=== PATIENT | male | born 1975 | race African-American/Black ===

== ENCOUNTER 2016-10-28 18:31 | Emergency (ER) | payer SELFPAY ==
[~2016-10-28] VITALS: Ht 182.9 cm; Wt 97.5 kg
[2016-10-28 18:33] VITALS: BP 128/75; PULSE 105; RESP 18; TEMP 98.4; O2SAT 98
--- NOTE | 2016-10-28 19:01 | PD ---
HPI Chief Complaint: Cold / Flu Symptoms Time Seen by Provider: 19:01 Travel History International Travel<30 days: No Contact w/Intl Traveler<30days: No Traveled to known affect area: No History of Present Illness HPI 41-year-old male with PMH of DM, asthma presents to the ED for evaluation of 2 week history of cough, congestion, clear rhinorrhea, subjective fevers. Patient states symptoms are improving with symptomatic treatment. He however he states that today he began to feel short of breath. Gradual onset. States that his chest feels tight, similar to previous asthma exacerbations. Endorses wheezing. He denies chest pain, palpitations, diaphoresis, nausea, vomiting, abdominal pain. Patient states he is prescribed a rescue inhaler but is "out." PFSH Past Medical History Diabetes: Yes Social History Tobacco Use: No Allergies-Medications (Allergen,Severity, Reaction): Coded Allergies: No Known Allergies (Unverified , 10/28/16) Reported Meds & Prescriptions Reported Meds & Active Scripts Active Azithromycin 250 Mg Tab 250 Mg PO DIRECTED Take 2 tabs (500 mg) on day 1 then 1 tab daily x 4 days. Tessalon Perles (Benzonatate) 100 Mg Cap 100 Mg PO TID PRN Ventolin Hfa 18 GM Inh (Albuterol Sulfate) 90 Mcg/Act Aer 2 Puff INH Q6H PRN Reported Metformin (Metformin HCl) 500 Mg Tab 500 Mg PO BIDPC With meals Gabapentin 300 Mg Cap 300 Mg PO TID Review of Systems Except as stated in HPI: all other systems reviewed are Neg Physical Exam Narrative GENERAL: Well-nourished, well-developed male in no acute distress. SKIN: Warm and dry. HEAD: Normocephalic. Atraumatic. EYES: No scleral icterus. No injection or drainage. PERRLA. EOMI. ENT: Pearly dyer tympanic membranes bilaterally. Nasal mucosa is moist. Oropharynx without erythema, edema or exudate. NECK: Supple, trachea midline. No JVD or lymphadenopathy. CARDIOVASCULAR: Regular rate and rhythm without murmurs, gallops, or rubs. No carotid bruits. 2+ DP and radial pulses bilaterally. RESPIRATORY: Breath sounds equal bilaterally. Very minimal expiratory wheezing in the upper lung lee bilaterally. No accessory muscle use. GASTROINTESTINAL: Abdomen soft, non-tender, nondistended. + Bowel sounds MUSCULOSKELETAL: No cyanosis, or edema. Patient is ambulatory, moves extremities spontaneously.. BACK: Nontender without obvious deformity. No CVA tenderness. Data Data Last Documented VS Vital Signs Date Time Temp Pulse Resp B/P Pulse Ox O2 Delivery O2 Flow Rate FiO2 10/28/16 20:48 98 10/28/16 18:33 98.4 105 18 128/75 Room Air Orders Complete Blood Count With Diff (10/28/16 19:08) Basic Metabolic Panel (Bmp) (10/28/16 19:08) Chest, Single Ap (10/28/16 19:08) Albuterol Neb (Albuterol Neb) (10/28/16 19:15) Dexamethasone Inj (Decadron Inj) (10/28/16 20:00) Methylprednisolone So Succ Inj (Solumedr (10/28/16 20:00) Labs Laboratory Tests Test 10/28/16 19:20 White Blood Count 5.7 TH/MM3 Red Blood Count 4.78 MIL/MM3 Hemoglobin 13.3 GM/DL Hematocrit 39.3 % Mean Corpuscular Volume 82.3 FL Mean Corpuscular Hemoglobin 27.8 PG Mean Corpuscular Hemoglobin 33.8 % Concent Red Cell Distribution Width 13.3 % Platelet Count 295 TH/MM3 Mean Platelet Volume 8.4 FL Neutrophils (%) (Auto) 54.6 % Lymphocytes (%) (Auto) 28.4 % Monocytes (%) (Auto) 13.0 % Eosinophils (%) (Auto) 3.5 % Basophils (%) (Auto) 0.5 % Neutrophils # (Auto) 3.1 TH/MM3 Lymphocytes # (Auto) 1.6 TH/MM3 Monocytes # (Auto) 0.7 TH/MM3 Eosinophils # (Auto) 0.2 TH/MM3 Basophils # (Auto) 0.0 TH/MM3 CBC Comment DIFF FINAL Differential Comment Sodium Level 138 MEQ/L Potassium Level 4.3 MEQ/L Chloride Level 101 MEQ/L Carbon Dioxide Level 29.2 MEQ/L Anion Gap 8 MEQ/L Blood Urea Nitrogen 23 MG/DL Creatinine 1.31 MG/DL Estimat Glomerular Filtration 60 ML/MIN Rate Random Glucose 132 MG/DL Calcium Level 9.0 MG/DL MDM Medical Decision Making Medical Screen Exam Complete: Yes Emergency Medical Condition: Yes Differential Diagnosis Viral syndrome versus acute asthma exacerbation versus pneumonia versus other Narrative Course 41-year-old male with PMH of DM, asthma presents to the ED for evaluation of 2 week history of cough, congestion, clear rhinorrhea, subjective fevers. Patient states symptoms are improving with symptomatic treatment. He however he states that today he began to feel short of breath. Gradual onset. States that his chest feels tight, similar to previous asthma exacerbations. Endorses wheezing. He denies chest pain, palpitations, diaphoresis, nausea, vomiting, abdominal pain. Vitals reviewed. Discussed exam reveals a nontoxic-appearing male in no acute distress. There is very faint bilateral expiratory wheezing in the upper lung lee. ENT exam is unremarkable. Patient was administered albuterol treatments 3, IV steroids. CBC shows no leukocytosis. CMP with mildly elevated BUN, otherwise unremarkable. Recheck of the patient reveals improvement of her breathing symptoms. I discussed the patient, workup , treatment plan with Dr. Cook who agrees. Patient was prescribed Z-David, Tessalon Perles, albuterol inhaler. He is instructed to take all antibiotics as prescribed, even if symptoms resolve, utilize inhaler when necessary, follow up with primary care provider. He indicated understanding of the instructions. He is amenable to the plan of care. He is stable and discharged home. Diagnosis Primary Impression: Viral syndrome Additional Impressions: Asthma exacerbation Cough Referrals: Primary Care Physician Patient Instructions: Asthma (ED), General Instructions, Viral Syndrome (ED) Additional Instructions: Rest, hydrate. Take all antibiotics as prescribed, even his symptoms resolved. Continue with symptomatic treatment. Tessalon Perles up to 3 times a day as needed for cough. Rescue inhaler as directed. Follow-up with the primary care provider this week. Return to the ED for any urgent or emergent medical condition. Med/Other Pt SpecificInfo: Prescription(s) given Scripts Azithromycin 250 Mg [id number] Mg PO DIRECTED #6 TAB Ref 0 Take 2 tabs (500 mg) on day 1 then 1 tab daily x 4 days. Prov:Jessica Shepard MD 10/28/16 Benzonatate (Tessalon Perles)100 Mg Vea040 Mg PO TID PRN (COUGH) #6 CAP Ref 0 Prov:Jessica Shepard MD 10/28/16 Albuterol 18 GM Inh (Ventolin Hfa 18 GM Inh)90 Mcg/Act Aer2 Puff INH Q6H PRN ( SHORTNESS OF BREATH) #1 INHALER Ref 0 Prov:Jessica Shepard MD 10/28/16 Disposition: 01 DISCHARGE HOME Condition: Stable Sheila Woodruff Oct 28, 2016 19:01
[2016-10-28] MEDS ORDERED: METF500T PO (19:28)
[2016-10-28] MEDS ORDERED: GABA300C5 PO (19:28)
--- NOTE | 2016-10-28 19:34 | RADRPT ---
EXAM DATE/TIME: 10/28/2016 19:06 [facility] COMPARISON: No previous studies available for comparison. INDICATIONS : Short of breath. MEDICAL HISTORY : Diabetes mellitus type II. SURGICAL HISTORY : None. ENCOUNTER: Initial ACUITY: 1 day PAIN SCORE: 6/10 LOCATION: Bilateral chest FINDINGS: Lungs are clear. No pleural effusion. Cardiomediastinal contours are normal. CONCLUSION: No acute disease. Jim Stout MD on October 28, 2016 at 19:32 Board Certified Radiologist. This report was verified electronically.
[2016-10-28] MEDS ORDERED: BENZ100 PO (19:50)
[2016-10-28] MEDS ORDERED: VENTAER INH (19:50)
[2016-10-28 19:51] LABS: AUTOMATED NEUTROPHIL # 3.1 TH/MM3 (1.8-7.7); BASOPHIL % 0.5 % (0.0-2.0); EOSINOPHIL # 0.2 TH/MM3 (0-0.4); EOSINOPHIL % 3.5 % (0.0-4.0); HEMATOCRIT 39.3 % (39.0-51.0); HEMO FLAGS DIFF FINAL; LYMPH % 28.4 % (9.0-44.0); LYMPHOCYTE # 1.6 TH/MM3 (1.0-4.8); MEAN CELL VOLUME 82.3 FL (80.0-100.0); MEAN CORPUSCULAR HEMOGLOBIN 27.8 PG (27.0-34.0); MEAN CORPUSCULAR HGB CONC 33.8 % (32.0-36.0); NEUT % 54.6 % (16.0-70.0); PLATELET COUNT 295 TH/MM3 (150-450); RED BLOOD COUNT 4.78 MIL/MM3 (4.50-5.90); RED CELL DISTRIBUTION WIDTH 13.3 % (11.6-17.2); WHITE BLOOD COUNT 5.7 TH/MM3 (4.0-11.0)
[2016-10-28] MEDS: RESP: ALBUTEROL 2.5 MG/3 ML NEB (SCH) INH (19:54)
[2016-10-28] MEDS ORDERED: DEXAMETHASONE SOD PHOS 4 MG/ML VIAL IM ONE (20:00)
[2016-10-28] MEDS ORDERED: methylPREDNISolone SOD SUCC 125 MG/2 ML VIAL IVP ONE (20:00)
[2016-10-28 20:04] LABS: BICARBONATE 29.2 MEQ/L (21.0-32.0); POTASSIUM 4.3 MEQ/L (3.5-5.1)
[2016-10-28] MEDS ORDERED: AZIT250T3 PO (20:19)
== END 2016-10-28 20:49 | disposition home or self-care (01) ==
LOC: NETRI 18:31
DX: B34.9 Viral infection, unspecified (principal); J45.901 Unspecified asthma with (acute) exacerbation; R05 Cough; J34.89 Other specified disorders of nose and nasal sinuses; E11.9 Type 2 diabetes mellitus without complications; Z79.84 Long term (current) use of oral hypoglycemic drugs
CPT/HCPCS: 71010; 80048; 85025; 94640; 94664; 96374; 99283; J2930; J7613